=== PATIENT | female | born 1990 | race Two or more races ===

== ENCOUNTER 2022-12-06 09:58 | Emergency (ER) | payer MEDICAID, OTHER ==
[~2022-12-06] VITALS: Ht 160 cm; Wt 74.9 kg
[2022-12-06 10:16] VITALS: BP 120/73
[2022-12-06] MEDS ORDERED: PRED20TA2 PO (12:45)
[2022-12-06] MEDS ORDERED: IBUP600T28 PO (12:45)
[2022-12-06] MEDS ORDERED: IBUPROFEN 600 MG TAB PO ONE (12:45)
== END 2022-12-06 13:50 | disposition home or self-care (01) ==
LOC: ER 09:58
DX: M06.9 Rheumatoid arthritis, unspecified (principal); Z79.899 Other long term (current) drug therapy; Z76.0 Encounter for issue of repeat prescription

== ENCOUNTER 2023-01-09 17:14 | Emergency (ER) | payer MEDICAID ==
[~2023-01-09] VITALS: Ht 154.9 cm; Wt 8.0 kg
[~2023-01-09 17:14] MED LIST: IBUP1TAB5 PO; PRED20TA2 PO
[2023-01-09 17:40] VITALS: BP 104/64
[2023-01-09] MEDS ORDERED: PRE5T PO (17:52)
[2023-01-09] MEDS ORDERED: IBUP1TAB5 PO (17:52)
== END 2023-01-09 19:11 | disposition home or self-care (01) ==
LOC: ER 17:14
DX: M06.9 Rheumatoid arthritis, unspecified (principal); Z76.0 Encounter for issue of repeat prescription; Z88.6 Allergy status to analgesic agent

== ENCOUNTER 2023-01-31 09:49 | Emergency (ER) | payer MEDICAID ==
[~2023-01-31] VITALS: Ht 152.4 cm; Wt 72.1 kg
[~2023-01-31 09:49] MED LIST changes: +PRE5T PO
[2023-01-31 10:25] VITALS: BP 121/76
[2023-01-31] MEDS ORDERED: DexAMETHasone SOD PHOS 10MG/1ML VIAL INJ IM ONE (10:45)
[2023-01-31] MEDS ORDERED: KETOROLAC TROMETH 60MG/2ML VIAL IM ONE (10:45)
[2023-01-31] MEDS ORDERED: MELO-335 PO (12:02)
[2023-01-31] MEDS ORDERED: HYDR-4902 PO (12:02)
[2023-01-31] MEDS ORDERED: PRED1PAK7 PO (12:02)
== END 2023-01-31 12:17 | disposition home or self-care (01) ==
LOC: ER 09:49
DX: M06.9 Rheumatoid arthritis, unspecified (principal); M25.542 Pain in joints of left hand; M25.541 Pain in joints of right hand; E66.9 Obesity, unspecified; Z68.31 Body mass index [BMI] 31.0-31.9, adult
CPT/HCPCS: 96372; 99284; J1100; J1885